=== PATIENT | female | born 1950 | race Caucasian/White ===

== ENCOUNTER → 2017-05-11 | Outpatient (CLI) | payer OTHER ==
[~2017-05-11] MED LIST: ALPR-411 PO; ASPEC325 PO; ATEN-173 PO; B-CO1CAP17 PO; CHOL20007 PO; DICY20TA35 PO; DRY EYES OPB; MAGNESIUM PO; POLY335019 PO; PRLSR20 PO; ROSU40TA PO; RXC5 PO; SERT-234 PO; TURM1CAP PO
--- NOTE | 2017-05-11 13:02 | DIAGNOSTIC IMAGING REPORT ---
MRI OF THE LEFT SHOULDER CLINICAL HISTORY: Left shoulder pain. COMPARISON STUDY: No priors. TECHNIQUE: MRI of the left shoulder was performed utilizing various T1 and T2 weighted sequences in the axial, sagittal, coronal planes. IV contrast was not administered for this examination. Note that interpretation is suboptimal without plain film correlate. FINDINGS: Rotator cuff: There is evidence of previous rotator cuff repair. There is moderate tendinopathy of the supraspinatus tendon. Mild tendinopathy seen involving the intraspinous tendon. There is a small partial thickness undersurface tear of the supraspinatus tendon near the leading edge, best seen on coronal image #13. The teres minor and subscapularis tendons are intact. There is no subacromial or subdeltoid bursal fluid. There is mild productive degenerative change at the acromioclavicular joint. Biceps tendon: The long head of the biceps tendon is normal in signal intensity and located within the bicipital groove. The anchor is maintained. Labrum: There is maceration with circumferential tearing of the glenoid labrum. This is greatest posteriorly. Shoulder joint: There is no joint effusion. There is degenerative thinning of the articular cartilage over the glenoid. Marrow edema and degenerative cystic changes seen in the posterior aspect of the glenoid. There is mild overlying soft tissue edema. Musculature and soft tissues: The musculature of the shoulder is normal in bulk and signal intensity. No atrophy is seen. IMPRESSION: 1. There are postoperative changes consistent with previous rotator cuff repair. No full-thickness rotator cuff tear is seen. 2. There is moderate tendinopathy of the supraspinatous tendon. A small partial thickness undersurface tear is seen near the leading edge. 3. There is circumferential tearing and maceration of the glenoid labrum, greatest posteriorly. There is underlying arthritic change and marrow edema within the posterior glenoid. 4. The long head of the biceps tendon is intact. Electronically signed by: Tyree Aldana M.D. 05/11/2017 1:01 PM Dictated Date/Time: 05/11/2017 12:39 PM
== END | disposition home or self-care (01) ==
LOC: C.MRIBC 11:23
PROVIDERS: ATTEND Orthopaedic Surgery
DX: M25.512 Pain in left shoulder (principal); M75.92 Shoulder lesion, unspecified, left shoulder; S43.432A Superior glenoid labrum lesion of left shoulder, initial encounter; X58.XXXA Exposure to other specified factors, initial encounter

== ENCOUNTER 2017-07-29 07:59 | Inpatient (IN) | payer OTHER ==
[2017-07-06 10:19] VITALS: BMI 42.0
--- NOTE | 2017-07-06 10:53 | PAT Medication Instructions ---
Service Date Jul 06, 2017. Current Home Medication List Alprazolam (Xanax), 0.5 MG PO TID PRN for RN Atenolol (Tenormin), 25 MG PO HS Cholecalciferol (Vitamin D3), 1 TAB PO QPM Dicyclomine Hcl (Bentyl), 20 MG PO QID PRN for RN Omeprazole (Prilosec), 40 MG PO QAM Polyethylene Glycol 3350 (Miralax), 17 GM PO QAM Rosuvastatin Calcium (Crestor), 40 MG PO HS Sertraline (Zoloft), 100 MG PO QAM Turmeric (Curcuma Longa) (Turmeric Curcumin), 1,000 MG PO QAM Vitamin B Cmplx/Vitc/Folic Ac (Nephrocaps), 1 CAP PO QAM [Dry Eyes], 1 DROP OPB PRN [Magnesium], 500 MG PO QPM Medication Instructions For Your Scheduled Surgery - Hold the following medications 2 weeks prior to surgery: Turmeric (Curcuma Longa) (Turmeric Curcumin), 1,000 MG PO QAM - Hold the following medications the morning of surgery: Cholecalciferol (Vitamin D3), 1 TAB PO QPM Dicyclomine Hcl (Bentyl), 20 MG PO QID PRN for RN Polyethylene Glycol 3350 (Miralax), 17 GM PO QAM Vitamin B Cmplx/Vitc/Folic Ac (Nephrocaps), 1 CAP PO QAM - Take the following medications the morning of surgery with a sip of water: [Dry Eyes], 1 DROP OPB PRNx Sertraline (Zoloft), 100 MG PO QAM Omeprazole (Prilosec), 40 MG PO QAM Alprazolam (Xanax), 0.5 MG PO TID PRN for RN (if needed) - Take the following medications as scheduled the night before surgery: [Magnesium], 500 MG PO QPM [Dry Eyes], 1 DROP OPB PRNx Rosuvastatin Calcium (Crestor), 40 MG PO HS Dicyclomine Hcl (Bentyl), 20 MG PO QID PRN for RN (if needed) Atenolol (Tenormin), 25 MG PO HS Alprazolam (Xanax), 0.5 MG PO TID PRN for RN (if needed) If you have any questions please call us at [phone] or [phone] or [phone]
--- NOTE | 2017-07-06 11:46 | DIAGNOSTIC IMAGING REPORT ---
CHEST PREADMISSION(PA/LAT) CLINICAL HISTORY: PAT preoperative evaluation COMPARISON STUDY: No previous studies for comparison. FINDINGS: The bones soft tissues and hemidiaphragms are normal. The cardiomediastinal silhouette is normal. The lungs are clear. The pulmonary vasculature is normal. IMPRESSION: Negative chest. The above report was generated using voice recognition software. It may contain grammatical, syntax or spelling errors. Electronically signed by: Collin Eli M.D. 07/06/2017 11:44 AM Dictated Date/Time: 07/06/2017 11:44 AM
[2017-07-06 11:57] LABS: URINE APPEARANCE CLEAR (CLEAR); URINE BILIRUBIN NEG (NEG); URINE COLOR YELLOW; URINE NITRITE NEG (NEG); URINE PH 7.5 (4.5-7.5); URINE SPECIFIC GRAVITY 1.009 (1.000-1.030); UROBILINOGEN NEG (NEG)
[2017-07-06 11:59] LABS: INR 0.9 (0.9-1.1); PARTIAL THROMBOPLASTIN RATIO 1.1; PROTHROMBIN TIME (PATIENT) 9.9 SECONDS (9.0-12.0)
[2017-07-06 12:07] LABS: MANUAL MICROSCOPIC REQUIRED? NO; REVIEW REQ? NO
[2017-07-06 12:15] LABS: HEMATOCRIT 37.3 % (37-47); MEAN CELL VOLUME 85.6 fL (80-100); MEAN CORPUSCULAR HEMOGLOBIN 28.4 pg (25-34); MEAN CORPUSCULAR HGB CONC 33.2 g/dl (32-36); MEAN PLATELET VOLUME 10.5 fL (7.4-10.4); PLATELET COUNT 232 K/uL (130-400); RED BLOOD COUNT 4.36 M/uL (4.2-5.4); WHITE BLOOD COUNT 6.22 K/uL (4.8-10.8)
[2017-07-06 12:20] LABS: BASO % 0.5 %; BASO ABS # 0.03 K/uL (0-0.2); COMPLETE YES; EOS % 3.4 %; IG% 0.3 %; LYMPH ABS # 1.74 K/uL (1.2-3.4); MONO % 7.6 %; NEUT % 60.2 %
[2017-07-06 12:49] LABS: BUN/CREATININE RATIO 17.4 (10-20); CALCIUM 10.4 mg/dl (8.5-10.1); CREATININE 0.96 mg/dl (0.60-1.20); POTASSIUM 5.2 mmol/L (3.5-5.1)
--- NOTE | 2017-07-28 11:15 | HISTORY & PHYSICAL EXAMINATION ---
DATE OF ADMISSION: 07/29/2017 CHIEF COMPLAINT: Left knee pain. HISTORY OF PRESENT ILLNESS: Ludy is a 67-year-old female who has been complaining of several year history of increasing bilateral knee pain, left worse than right. X-rays and clinical examination are diagnostic for primary osteoarthritis of the left shoulder. After failing extensive conservative treatment, she elects to proceed with left total knee arthroplasty. PAST MEDICAL HISTORY: Hyperlipidemia, hypertension, GERD, diverticulosis. PAST SURGICAL HISTORY: Significant for open left rotator cuff repair at [facility] about 10 years ago, hysterectomy, heart catheterization and cholecystectomy. ALLERGIES: None. MEDICATIONS: Vitamin D3 2000 units daily, atenolol 25 mg daily, Zoloft 100 mg daily, Prilosec 40 mg daily, Crestor 40 mg daily, Bentyl 20 mg 4 times a day as needed, Xanax 0.5 mg 3 times per day as needed, diclofenac 1 tab twice a day, MiraLax as needed. FAMILY HISTORY: Noncontributory. SOCIAL HISTORY: She is , rarely drinks, and is moderately active. REVIEW OF SYSTEMS: She complains of left knee pain. All other pertinent review of systems are negative. PHYSICAL EXAMINATION: GENERAL: She is awake, alert and oriented x3. She is in no apparent distress. She is very pleasant. HEENT: Pupils are equal, round and reactive to light. Extraocular motion intact. Oral mucosa is pink and moist. HEART: Regular rate per radial pulse. LUNGS: Yulissa symmetrically bilaterally with no audible breath sounds. ABDOMEN: Soft, nontender, nondistended. MUSCULOSKELETAL: On physical examination of her left knee, there is slight varus deformity. She has severe tenderness to palpation along the medial joint line and over the distal medial femoral condyle. She has good range of motion from 0-125 degrees and no instability. IMAGING DATA: X-rays show advanced osteoarthritis of the left knee, mostly involving the medial compartment. There is joint space narrowing, osteophyte formation, and subchondral cyst. IMPRESSION: Primary osteoarthritis of the left knee. PLAN: Will proceed with a Biomet Vanguard left total knee arthroplasty. Postoperatively, she will be placed in a compressive dressing and started on aspirin 325 mg twice a day. She will be kept in the hospital for postoperative medical management.
[~2017-07-29] VITALS: Ht 160 cm; Wt 109.5 kg
[2017-07-29] VITALS (10 sets, daily range): BP systolic 127–177; BP diastolic 64–84; PULSE 46–68; TEMP 36.4–36.9; O2SAT 92–100; Ht 160 cm; Wt 109.5 kg
[2017-07-29] MEDS: TRANEXAMIC ACID INJ 1,000 MG in SODIUM CHLORIDE 0.9% 100ML 100 ML IV SCH ×2 (06:30→08:55)
[2017-07-29] MEDS: SODIUM CHLORIDE 0.9% 500ML 500 ML IV SCH ×4 (06:31→08:40)
--- NOTE | 2017-07-29 06:52 | History & Physical Bridge Note ---
H&P Re-Evaluation Bridge Note: I have examined the patient, reviewed the History & Physical and in the interval since the performance of the History & Physical I have noted the following changes of clinical significance: No changes noted
[~2017-07-29 07:59] MED LIST changes: +ACETAMINOPHEN 500 MG TAB PO SCH; -ASPEC325 PO; +BUPIVACAINE 0.25% 30 ML VIAL ONE; +BUPIVACAINE 0.5 % 5 MG/1 ML PF 10ML VIAL ONE; +CEFAZOLIN 2000 MG/60 ML D5W 60 ML IV SCH; +FAMOTIDINE 20 MG TAB PO SCH; +FENTANYL CITRATE INJ 50 MCG/1 ML 2 ML VIAL ONE; +GABAPENTIN 300 MG CAP PO SCH; +MIDAZOLAM HCL 1 MG/ML 2ML VIAL ONE; +ROPIVACAINE 5MG/ML 30 ML 150 MG, BUPIVACAINE/EPINEPHR 0.5% MPF 30 ML, KETOROLAC TROMETH... INFIL SCH; -RXC5 PO; +SODIUM CHLORIDE 0.9% 1000ML 1,000 ML IV SCH; +TRANEXAMIC ACID INJ 1,000 MG in SODIUM CHLORIDE 0.9% 100ML 100 ML IV SCH
[2017-07-29] MEDS ORDERED: ATROPINE SULFATE 0.1 MG/ML 5ML SYR IV PRN (08:45)
[2017-07-29] MEDS ORDERED: FENTANYL CITRATE INJ 50 MCG/1 ML 2 ML VIAL IV PRN (08:45)
[2017-07-29] MEDS ORDERED: EpHEDrine SULFATE INJ 50 MG/ML AMP IV PRN (08:45)
[2017-07-29] MEDS ORDERED: HYDROmorphone INJ 1 MG/ML SYR IV PRN (08:45)
[2017-07-29] MEDS ORDERED: ONDANSETRON INJ 2 MG/ML 2 ML VIAL IV PRN ×2 (08:45→12:30)
[2017-07-29] MEDS ORDERED: PROMETHAZINE HCL INJ 12.5 MG in SODIUM CHLORIDE 0.9% 50ML 50 ML IV PRN (08:45)
[2017-07-29] MEDS: LACTATED RINGER'S 1000ML IV SCH (08:50)
[2017-07-29 09:00] LABS: BUN/CREATININE RATIO 18.8 (10-20); CALCIUM 9.6 mg/dl (8.5-10.1); CREATININE 0.83 mg/dl (0.60-1.20); POTASSIUM 4.1 mmol/L (3.5-5.1)
[2017-07-29] MEDS ORDERED: ORTHO JOINT ANESTHETIC ONE (09:32)
[2017-07-29] MEDS ORDERED: BACITRACIN 50000 UNIT VIAL ONE (09:32)
[2017-07-29] MEDS ORDERED: LIDOCAINE HCL 2% 2 ML VIAL (20MG/ML) ONE (11:29)
[2017-07-29] MEDS ORDERED: PROPOFOL IV EMULSION 10 MG/ML 20 ML VIAL IV ONE (11:29)
[2017-07-29] MEDS ORDERED: SOD PHOSPHATE/SOD BIPHOSPHATE ENEMA 132 ML BTL PR PRN (12:30)
[2017-07-29] MEDS ORDERED: ALPRAZOLAM 0.5 MG TAB PO PRN (12:30)
[2017-07-29] MEDS ORDERED: BISACODYL 10 MG SUPP PR PRN (12:30)
[2017-07-29] MEDS ORDERED: DICYCLOMINE HCL 20 MG TAB PO PRN (12:30)
[2017-07-29] MEDS ORDERED: METOCLOPRAMIDE HCL INJ 5 MG/ML 2 ML VIAL IV PRN (12:30)
[2017-07-29] MEDS ORDERED: MAGNESIUM HYDROXIDE SUSP 30 ML UDC PO PRN (12:30)
[2017-07-29] MEDS ORDERED: MoRPHine SULFATE 2 MG/ML CARP IV PRN (12:30)
--- NOTE | 2017-07-29 12:36 | [facility] Post Operative Brief Note ---
Immediate Operative Summary Operative Date Jul 29, 2017. Pre-Operative Diagnosis Left Knee Osteoarthritis Post-Operative Diagnosis Same as preoperative Procedure(s) Performed Left Total Knee Arthroplasty Surgeon Dr. Nolan Lane Care Connector Surgeon(s) Adama Feliz PA-C Estimated Blood Loss 50ml Findings as above Specimens A.) Left Knee Bone and Tissue Complication(s) None Disposition Recovery Room / PACU
[2017-07-29] MEDS ORDERED: ARTIFICIAL TEARS OP SOLN OP PRN ×2 (13:15)
--- NOTE | 2017-07-29 13:16 | Anesthesiology Progress Note ---
Anesthesia Post Op Note Date & Time Jul 29, 2017 at 13:15 Vital Signs Pain Intensity: 0 Vital Signs Past 12 Hours Date Time Temp Pulse Resp B/P (MAP) Pulse Ox O2 Delivery O2 Flow Rate FiO2 07/29/17 12:55 57 16 118/49 99 Nasal Cannula 2 07/29/17 12:49 36.8 59 16 128/53 99 Nasal Cannula 2 07/29/17 08:29 36.5 60 18 177/71 98 Room Air Notes Mental Status: alert / awake / arousable, participated in evaluation Pt Amnestic to Procedure: Yes Nausea / Vomiting: adequately controlled Pain: adequately controlled Airway Patency, RR, SpO2: stable & adequate BP & HR: stable & adequate Hydration State: stable & adequate Neuraxial Anesthesia: was administered, sensory block is resolving Anesthetic Complications: no major complications apparent Doing well, VSS. No complaints. Pain controlled
--- NOTE | 2017-07-29 13:23 | DIAGNOSTIC IMAGING REPORT ---
LEFT KNEE 2 VIEWS History: Left total knee arthroplasty. Degenerative arthritis. Postop. FINDINGS: The patient is status post a left total knee arthroplasty. The hardware is intact. No fracture or dislocation. Skin caroline and surgical drains are in place. IMPRESSION: Left total knee arthroplasty. No evidence for hardware complication. Electronically signed by: John Quinn M.D. 07/29/2017 1:22 PM Dictated Date/Time: 07/29/2017 1:21 PM
[2017-07-29] MEDS: SODIUM CHLORIDE 0.9% 1000ML 1,000 ML IV SCH ×2 (14:33→23:33)
[2017-07-29] MEDS: ACETAMINOPHEN IV 1,000 MG in EMPTY BAG 0 ML IV SCH ×2 (15:31→23:32)
[2017-07-29] MEDS: OXYCODONE HCL IR 5 MG TAB (IMMEDIATE RELEASE) PO PRN ×3 (16:32→22:09)
[2017-07-29] MEDS: KETOROLAC TROMETHAMINE 15 MG/ML VIAL IV. SCH ×2 (18:04→23:32)
--- NOTE | 2017-07-29 18:11 | OPERATIVE REPORT ---
DATE OF OPERATION: 07/29/2017 PREOPERATIVE DIAGNOSIS: Primary osteoarthritis of the left knee. POSTOPERATIVE DIAGNOSIS: Same. PROCEDURE: Left total knee arthroplasty. SURGEON: Dr. Nolan Lane. LEAN SIX SIGMA BLACK BELT: Adama Feliz PA-C, whose assistance was necessary for positioning the leg and helping with retraction and closure. ANESTHESIA: Spinal with a left adductor nerve block. COMPLICATIONS: None. CONDITION: Stable to PACU. IMPLANTS USED: I used a Biomet Vanguard left total knee arthroplasty with a size 65 left femur, 71 tibia, size 10 posterior stabilized poly and a 31 x 8 three-peg patella. All complements were cemented with Palacos-G cement. INDICATIONS: Jamaica is a pleasant 67-year-old female who presented to my office with complaints of chronic left knee pain. X-rays and clinical examination were diagnostic for primary osteoarthritis of the left knee. After failing extensive conservative treatment, she elected to undergo a left total knee arthroplasty. DESCRIPTION OF PROCEDURE: On 07/29/2017, she arrived at [facility] for the above procedure. She was seen in the preoperative holding area and the operative extremity was identified and signed. She was given a preoperative antibiotic, a spinal anesthetic and a left adductor nerve block. She was taken back to the operating room, laid on the table in supine position and given basic sedation. The left knee was then prepped and draped in sterile fashion. Time-out was done and the patient and operative extremity was properly identified. A midline incision was made directly over the patella. Dissection was taken down to the extensor mechanism and a medial parapatellar arthrotomy was used. The medial retinaculum was released. The fat pad was left intact. The knee was then flexed. ACL, PCL and meniscus were then removed. A drill was sent down the center of the femoral canal followed by an intramedullary cristobal. Off that cristobal, a distal femoral cutting block was placed and 12 mm was resected off the distal femur at 5 degrees of valgus. A posterior referencing guide was used and the femur measured to be a size 65. Two drill holes were then placed in 3 degrees of external rotation. A 4-in-1 cutting block was impacted into place. Anterior, posterior and chamfer cuts were then made. The box cutting guide was then placed and the box was resected for posterior stabilizing component. The proximal tibia was then exposed and a drill was sent down the center of the tibial canal followed by an intramedullary cristobal. Off that cristobal, a proximal tibial resection guide was placed and 2 mm was resected off the low medial side. The tibia measured to be a size 71. It was set in the appropriate rotation, drilled and then punched. The posterior aspect of the knee was then opened up and any soft tissue remnants were removed. Trials were placed. The knee was brought through a full range of motion and felt to be stable. The patella was then everted and 8 mm was resected off the posterior aspect of the patella. A size 31 three-peg guide was placed and the peg holes were drilled. A trial patella was then placed. The knee was brought through a full range of motion and felt to be stable. Trial components were then removed and the final components were then cemented in place with Palacos-G cement. The surrounding soft tissues were then injected with 100 mL of an orthopedic pain control cocktail. Several different polyethylene trials were used and a size 10 posterior stabilized poly seemed to be the best fit. The final implant was then snapped into place and the anterior bar was locked. The joint was then irrigated with 3 liters of normal saline solution with bacitracin. Two drains were placed. The extensor mechanism was then closed with #2 FiberWire suture in the superior medial aspect and #1 Vicryl both proximally and distally. Skin was closed with 2-0 Vicryl, 3-0 V-Loc sutures and caroline. She was then placed in a soft compressive dressing, transferred to a [facility] and taken to the postanesthesia care unit in stable condition. She tolerated the procedure well. I attest to the content of the Intraoperative Record and any orders documented therein. Any exception s are noted below.
[2017-07-29] MEDS: CEFAZOLIN IV 2,000 MG in DEXTROSE 5% 50ML 50 ML IV SCH (19:09)
[2017-07-29] MEDS: ASPIRIN 325 MG ECTAB PO SCH (20:35)
[2017-07-29] MEDS: DOCUSATE SODIUM 100 MG CAP PO SCH (20:35)
[2017-07-29] MEDS: ROSUVASTATIN CALCIUM 20 MG TAB PO SCH (20:35)
[2017-07-29] MEDS: MAGNESIUM OXIDE 400 MG TAB PO SCH (20:36)
[2017-07-29] MEDS: SENNA 8.6 MG TAB PO SCH (20:36)
[2017-07-29] MEDS: CHOLECALCIFEROL 1000 INTER.UNIT TAB PO SCH (20:36)
[2017-07-30] VITALS (8 sets, daily range): BP systolic 112–150; BP diastolic 61–76; PULSE 52–76; TEMP 36.7–36.9; O2SAT 95–98
[2017-07-30] MEDS: CEFAZOLIN IV 2,000 MG in DEXTROSE 5% 50ML 50 ML IV SCH (02:07)
[2017-07-30] MEDS: KETOROLAC TROMETHAMINE 15 MG/ML VIAL IV. SCH ×4 (06:03→23:24)
[2017-07-30 06:17] LABS: BUN/CREATININE RATIO 18.3 (10-20); CREATININE 0.83 mg/dl (0.60-1.20); POTASSIUM 4.1 mmol/L (3.5-5.1)
[2017-07-30 06:42] LABS: HEMATOCRIT 29.2 % (37-47); MEAN CELL VOLUME 84.4 fL (80-100); MEAN CORPUSCULAR HEMOGLOBIN 28.3 pg (25-34); MEAN PLATELET VOLUME 10.2 fL (7.4-10.4); PLATELET COUNT 161 K/uL (130-400); RED BLOOD COUNT 3.46 M/uL (4.2-5.4); WHITE BLOOD COUNT 9.91 K/uL (4.8-10.8)
[2017-07-30 06:56] LABS: MEAN CORPUSCULAR HGB CONC 33.6 g/dl (32-36)
[2017-07-30] MEDS: OXYCODONE HCL IR 5 MG TAB (IMMEDIATE RELEASE) PO PRN ×3 (07:35→21:52)
[2017-07-30] MEDS: ACETAMINOPHEN IV 1,000 MG in EMPTY BAG 0 ML IV SCH ×3 (07:35→23:23)
[2017-07-30] MEDS: NEPHROCAPS PO SCH (08:26)
[2017-07-30] MEDS: MULTIVITAMIN TAB PO SCH (08:27)
[2017-07-30] MEDS: PANTOprazole SOD 40 MG TAB PO SCH (08:27)
[2017-07-30] MEDS: SERTRALINE HCL 100 MG TAB PO SCH (08:27)
[2017-07-30] MEDS: ASPIRIN 325 MG ECTAB PO SCH ×2 (08:27→21:50)
[2017-07-30] MEDS: POLYETHYLENE (MIRALAX) 17 GM PACK PO SCH (08:28)
[2017-07-30] MEDS: DOCUSATE SODIUM 100 MG CAP PO SCH ×2 (08:28→21:49)
[2017-07-30] MEDS: SODIUM CHLORIDE 0.9% 1000ML 1,000 ML IV SCH (08:29)
--- NOTE | 2017-07-30 08:50 | PROGRESS NOTE ---
DATE: 07/30/2017 CHIEF COMPLAINT: Status post left total knee arthroplasty post op day #1. PROGRESS: Jamaica was seen and examined at bedside today. Overall, she is doing very well. She is sitting up in the chair, eating breakfast. Her knee is flexed. She has very little pain and no complaints. PHYSICAL EXAMINATION: LEFT KNEE: The dressing is clean and dry and the drain is to suction. She has active dorsiflexion and plantarflexion of her left ankle and sensation is intact. DATA: She has an H&H today of 9.8 and 29.2. Her glucose is 123. Her vital signs are all stable on room air and she is voiding on her own. X-rays postoperatively of the left knee showed the prosthesis to be in anatomical alignment without any evidence of fracture, dislocation or loosening. IMPRESSION: Status post left total knee arthroplasty postop day #1. PLAN: At this point, she is doing very well and happy with her progress. She will be seen by physical therapy today for ambulation. We will work on pain control. Tomorrow morning, the nursing staff can change the dressing and pull the drain and will likely discharge her to home with either a home health service or outpatient physical therapy. She will be seen by case management today to help decide that.
[2017-07-30] MEDS ORDERED: TURMERIC 1000 MG PO SCH (09:00)
[2017-07-30] MEDS: SENNA 8.6 MG TAB PO SCH (21:50)
[2017-07-30] MEDS: MAGNESIUM OXIDE 400 MG TAB PO SCH (21:50)
[2017-07-30] MEDS: ROSUVASTATIN CALCIUM 20 MG TAB PO SCH (21:50)
[2017-07-30] MEDS: CHOLECALCIFEROL 1000 INTER.UNIT TAB PO SCH (21:50)
[2017-07-31] MEDS: OXYCODONE HCL IR 5 MG TAB (IMMEDIATE RELEASE) PO PRN ×2 (04:10→07:52)
[2017-07-31] MEDS: KETOROLAC TROMETHAMINE 15 MG/ML VIAL IV. SCH (05:23)
[2017-07-31 06:15] VITALS: BP 135/71; PULSE 74; TEMP 36.8; O2SAT 95
[2017-07-31] MEDS: ACETAMINOPHEN IV 1,000 MG in EMPTY BAG 0 ML IV SCH (08:09)
[2017-07-31] MEDS: PANTOprazole SOD 40 MG TAB PO SCH (08:10)
[2017-07-31] MEDS: MULTIVITAMIN TAB PO SCH (08:10)
[2017-07-31] MEDS: ASPIRIN 325 MG ECTAB PO SCH (08:10)
[2017-07-31] MEDS: NEPHROCAPS PO SCH (08:10)
[2017-07-31] MEDS: SERTRALINE HCL 100 MG TAB PO SCH (08:11)
[2017-07-31] MEDS: POLYETHYLENE (MIRALAX) 17 GM PACK PO SCH (08:23)
[2017-07-31] MEDS: DOCUSATE SODIUM 100 MG CAP PO SCH (08:24)
[2017-07-31 08:55] VITALS: BP 135/71; PULSE 74; O2SAT 95
[2017-07-31] MEDS ORDERED: ASPEC325 PO (09:08)
[2017-07-31] MEDS ORDERED: RXC5 PO (09:08)
--- NOTE | 2017-07-31 09:09 | Discharge Instructions ---
Discharge Instructions Date of Service Jul 31, 2017. Admission Reason for Admission: Left Knee Osteoarthritis Discharge Discharge Diagnosis / Problem: Left Total Knee Discharge Goals Goal(s): Decrease discomfort, Improve function Activity Recommendations Activity Limitations: as noted below . Instructions / Follow-Up Instructions / Follow-Up Activity and Therapy Recommendations: * If you are using [facility] then Physical Therapy will be provided until they feel you are ready to start Outpatient Physical Therapy. If you are not using a Home Health agency then Outpatient Physical Therapy should start about 3-5 days from your day of surgery. Therapy will last about 6-10 weeks * It is important not to put a pillow under your knee when you are relaxing or sleeping. It is just as important to make sure you are getting your knee perfectly straight as it is to regain your knee bend. * You were shown a series of exercises in the hospital. Do these exercises three times each day including the exercises you were shown in physical therapy. * Get up and walk several times each day. For the first four weeks, try not to stand or walk for more than one hour at a time. If you do stand or walk for more than one hour, you will not hurt anything, but your leg will likely swell. * As you feel comfortable, you may change from the walker or crutches to a cane and then to independent walking. Medications: * Narcotic You will likely be sent home from the hospital with a prescription for the narcotic pain medication that worked best throughout your stay. * Aspirin Most patients will be required to take Aspirin 325mg twice a day for 6 weeks after surgery. This is obtained [id number] and a prescription is not necessary. * Other medications may be prescribed for specific circumstances. If you have any questions, please call the office at . * Resume previous home medications unless otherwise instructed TEDs/Elastic Stockings: The white elastic stockings help limit swelling and prevent blood clots from forming in your legs.~ The more you wear them, the more they work. Wear them for six weeks. Showering: You may shower 5 days from the day of surgery. Let the soapy shower water run over the caroline. Do not scrub or soak the incision. Things To Watch For: * Drainage from the incision site that occurs more than one week after your surgery. * Increased redness at the incision site. * Fever above 102 degrees Fahrenheit. * Unusual chest pain or shortness of breath. * Call [facility] at with any of the above problems Follow-Up Visit: Follow-up with Dr. Lane 2-3 weeks after your day of surgery. An appointment was probably scheduled when you signed-up for surgery in the office. If you have any questions call Office Instructions: More detailed instructions as well as Frequently Asked Questions were provided in a folder by our office when you signed-up for surgery. Please review these instructions when you get home. If you have any further questions or concerns, please feel free to call the office at [phone] Current Hospital Diet Patient's current hospital diet: Regular Diet Discharge Diet Recommended Diet: Regular Diet Procedures Procedures Performed: Left Total Knee Arthroplasty Pending Studies Studies pending at discharge: no Medical Emergencies . Who to Call and When: Medical Emergencies: If at any time you feel your situation is an emergency, please call [phone] immediately. . Non-Emergent Contact Non-Emergency issues call your: Surgeon Call Non-Emergent contact if: wound has increased drainage, wound has increased redness . "Provider Documentation" section prepared by Nolan Lane. . VTE Core Measure Inpt VTE Proph given/why not?: Other Anticoagulation (Aspirin 325 twice a week for 6 weeks)
--- NOTE | 2017-07-31 11:00 | PROGRESS NOTE ---
DATE: 07/31/2017 CHIEF COMPLAINT: Status post left total knee arthroplasty, postop day #1. PROGRESS: Ludy was seen and examined at bedside today. Overall, she is doing very well. She just got back from physical therapy where she was easily ambulating. Her pain is well controlled. She has no complaints. PHYSICAL EXAMINATION: LEFT KNEE: The dressing is clean and dry and the drain had been pulled earlier this morning. She has excellent range of motion of her leg. She is neurovascularly intact. IMPRESSION: Status post left total knee arthroplasty postop day #2. PLAN: At this point, she is doing very well. She is not having much pain in the knee. She is happy with her progress. We are going to discharge her to home with home health services and oral pain medications.
--- NOTE | 2017-08-01 01:13 | DISCHARGE SUMMARY ---
DISCHARGE DIAGNOSIS: Primary osteoarthritis of the left knee. PROCEDURE: Left total knee arthroplasty on 07/29/[address]. DISCHARGE INSTRUCTIONS: 1. Aspirin 325 mg twice a day. 2. KAREN hose stockings for 6 weeks. 3. Oxycodone 5-10 mg every 4 hours as needed for pain. 4. Xanax 0.5 mg 3 times a day as needed. 5. Atenolol 25 mg at night. 6. Bentyl 20 mg 4 times a day as needed. 7. Prilosec 40 mg daily. 8. Crestor 40 mg at night. 9. Zoloft 100 mg daily. 10. Continue all other over the counter medications and supplements. HOSPITAL COURSE: Jamaica is a 67-year-old female who presented to my office with complaints of severe left knee pain. X-rays and clinical examination were diagnostic for primary osteoarthritis of the left knee. After failing conservative treatment, she elected to undergo a left total knee arthroplasty. On 07/29/2017, she arrived at [facility] for the above procedure. She was seen in the preoperative holding area and the operative extremity was identified and signed. She was given a preoperative antibiotic and a spinal anesthetic and a left adductor nerve block. She then underwent a left total knee arthroplasty without complications. Postoperatively, she was started on aspirin 325 mg twice a day for DVT prophylaxis and discharged to general orthopedic floors. Her hospital course was uneventful. On postop day #1, her H&H was stable at 9.8 and 29.2. She was able to ambulate well with physical therapy and her pain was well controlled. On postop day #2, she continued to do very well. The dressing were changed, the drain was pulled and she was subsequently discharged to home with the above instructions.
== END 2017-07-31 09:36 | disposition home health service (06) | DRG 470 ==
LOC: C.ACU 07:59 → C.3E 10:00 → ENRESERV 13:03
PROVIDERS: ADMIT Orthopaedic Surgery; ATTEND Orthopaedic Surgery
PROC: 0SRD0J9 Replacement of Left Knee Joint with Synthetic Substitute, Cemented, Open Approach (ICD-10-PCS; principal; 2017-07-29 11:40)
DX: M17.12 Unilateral primary osteoarthritis, left knee (principal); M19.012 Primary osteoarthritis, left shoulder; E78.5 Hyperlipidemia, unspecified; I10 Essential (primary) hypertension; K21.9 Gastro-esophageal reflux disease without esophagitis

== ENCOUNTER 2017-11-11 06:16 | Inpatient (IN) | payer OTHER ==
[2017-10-12 16:38] LABS: BASO % 0.2 %; BASO ABS # 0.01 K/uL (0-0.2); EOS % 1.9 %; EOS ABS # 0.11 K/uL (0-0.5); HEMATOCRIT 36.1 % (37-47); HEMOGLOBIN 11.7 g/dL (12.0-16.0); IG# 0.01 K/uL (0.00-0.02); LYMPH % 27.4 %; LYMPH ABS # 1.62 K/uL (1.2-3.4); MEAN CELL VOLUME 83.2 fL (80-100); MEAN CORPUSCULAR HGB CONC 32.4 g/dl (32-36); MEAN PLATELET VOLUME 10.5 fL (7.4-10.4); MONO % 5.9 %; MONO ABS # 0.35 K/uL (0.11-0.59); NEUT % 64.4 %; NEUT ABS # 3.81 K/uL (1.4-6.5); PLATELET COUNT 245 K/uL (130-400); RED CELL DISTRIBUTION WIDTH CV 15.1 % (11.5-14.5); RED CELL DISTRIBUTION WIDTH SD 46.1 fL (36.4-46.3); WHITE BLOOD COUNT 5.91 K/uL (4.8-10.8)
[2017-10-12 16:47] LABS: PTT PATIENT 23.9 SECONDS (21.0-31.0)
[2017-10-12 17:03] LABS: BLOOD UREA NITROGEN 14 mg/dl (7-18); CALCIUM 9.4 mg/dl (8.5-10.1); CARBON DIOXIDE 27 mmol/L (21-32); CREATININE 0.74 mg/dl (0.60-1.20); GLUCOSE 95 mg/dl (70-99); POTASSIUM 4.2 mmol/L (3.5-5.1); SODIUM 137 mmol/L (136-145)
[2017-10-21 10:33] VITALS: BMI 41.0
--- NOTE | 2017-11-10 07:09 | HISTORY & PHYSICAL EXAMINATION ---
DATE OF ADMISSION: 11/11/2017 PREOPERATIVE DIAGNOSIS: Primary osteoarthritis of the right knee. HISTORY OF PRESENT ILLNESS: Jamaica is a very pleasant 67-year-old female who has been having several year history of chronic increasing right knee pain. X-rays and clinical examination have been diagnostic for primary osteoarthritis of the right knee. She had a left total knee arthroplasty done about 3 months ago and is doing very well with that. She elected to proceed with a right knee replacement. She understands the risks, benefits, alternatives to procedure and would like to proceed. PAST MEDICAL HISTORY: Significant for hyperlipidemia, hypertension, GERD, and diverticulosis. PAST SURGICAL HISTORY: Significant for open rotator cuff repair at [facility] 10 years ago, hysterectomy, heart catheterization, cholecystectomy and a left total knee arthroplasty 3 months ago. ALLERGIES: None. MEDICATIONS: Include vitamin D3, atenolol, Zoloft, Prilosec, Crestor, Bentyl, Xanax, diclofenac and MiraLax. FAMILY HISTORY: Denies. SOCIAL HISTORY: She is , rarely drinks. She is moderately active. REVIEW OF SYSTEMS: She complains of right knee pain. All other pertinent review of systems are negative. PHYSICAL EXAMINATION: GENERAL: She is awake, alert and oriented x3. She is in no apparent distress. She is very pleasant. HEENT: Pupils are equal, round and reactive to light. Extraocular motion intact. Oral mucosa is pink and moist. HEART: Regular rate per radial pulse. LUNGS: Yulissa symmetrically bilaterally with no audible breath sounds. ABDOMEN: Soft, nontender, nondistended. MUSCULOSKELETAL: On physical examination of the right knee, she has no effusion on exam. She has good motion from 0-130 degrees. She has a slight varus deformity. She has significant tenderness to palpation over the distal medial femoral condyle and over the medial joint line. IMAGING DATA: X-rays of the right knee do show advanced osteoarthritis mostly involving the medial compartment. There is joint space narrowing and osteophyte formation. IMPRESSION: Primary osteoarthritis of the right knee. PLAN: We will proceed with a right total knee arthroplasty. Postoperatively, she will be started on aspirin for DVT prophylaxis and likely kept in the hospital for 2 midnights for postoperative medical management.
[~2017-11-11] VITALS: Ht 160 cm; Wt 106.4 kg
[2017-11-11] VITALS (9 sets, daily range): BP systolic 103–149; BP diastolic 63–83; PULSE 55–68; TEMP 36.3–36.9; O2SAT 91–98; Ht 160 cm; Wt 106.4 kg
[~2017-11-11 06:16] MED LIST changes: -BUPIVACAINE 0.25% 30 ML VIAL ONE; -BUPIVACAINE 0.5 % 5 MG/1 ML PF 10ML VIAL ONE; -CEFAZOLIN 2000 MG/60 ML D5W 60 ML IV SCH; +CEFAZOLIN 2000MG IV PUSH 10 ML IV SCH; -FENTANYL CITRATE INJ 50 MCG/1 ML 2 ML VIAL ONE; +LACTATED RINGER'S 1000ML 1,000 ML IV SCH; +LACTATED RINGER'S 1000ML 500 ML IV SCH; +LACTATED RINGER'S 1000ML IV SCH; -MIDAZOLAM HCL 1 MG/ML 2ML VIAL ONE; +PATIENT'S ALLERGY INFO NEEDS ENTERED SCH; +ROPIVACAINE 5MG/ML 30 ML 150 MG, BUPIVACAINE 0.5% MPF INJ 30 ML, EpINEphrine HCL INJ 0.... INFIL SCH; -ROPIVACAINE 5MG/ML 30 ML 150 MG, BUPIVACAINE/EPINEPHR 0.5% MPF 30 ML, KETOROLAC TROMETH... INFIL SCH; +RXC5 PO; -SODIUM CHLORIDE 0.9% 1000ML 1,000 ML IV SCH; -TRANEXAMIC ACID INJ 1,000 MG in SODIUM CHLORIDE 0.9% 100ML 100 ML IV SCH
[2017-11-11] MEDS: TRANEXAMIC ACID INJ 1,000 MG in SYRINGE 0 ML IV SCH ×2 (06:30→08:04)
[2017-11-11] MEDS ORDERED: BUPIVACAINE 0.5 % 5 MG/1 ML PF 10ML VIAL ONE (06:31)
[2017-11-11] MEDS ORDERED: BUPIVACAINE 0.25% 30 ML VIAL ONE (06:31)
[2017-11-11] MEDS ORDERED: MIDAZOLAM HCL 1 MG/ML 2ML VIAL ONE (07:17)
[2017-11-11] MEDS ORDERED: BACITRACIN 50000 UNIT VIAL ONE (07:27)
[2017-11-11] MEDS ORDERED: ORTHO JOINT ANESTHETIC ONE (07:27)
[2017-11-11] MEDS ORDERED: KETOROLAC TROMETHAMINE 15 MG/ML VIAL IV. PRN (09:00)
[2017-11-11] MEDS ORDERED: ATROPINE SULFATE 0.1 MG/ML 5ML SYR IV PRN (09:00)
[2017-11-11] MEDS ORDERED: PHENYLEPHRINE 100MCG/ML 5ML SYR IV PRN (09:00)
[2017-11-11] MEDS ORDERED: EpHEDrine SULFATE INJ 50 MG/ML AMP IV PRN (09:00)
[2017-11-11] MEDS ORDERED: HYDROmorphone INJ 2 MG/ML SYR/VIAL IV PRN (09:00)
[2017-11-11] MEDS ORDERED: ONDANSETRON INJ 2 MG/ML 2 ML VIAL IV PRN ×2 (09:00→10:00)
--- NOTE | 2017-11-11 09:59 | [facility] Post Operative Brief Note ---
Immediate Operative Summary Operative Date Nov 11, 2017. Pre-Operative Diagnosis Osteoarthritis Right Knee Post-Operative Diagnosis same Procedure(s) Performed Right Total Knee Arthroplasty Surgeon Dr Lane Bandoleer Packer Surgeon(s) Adama Feliz PAC Estimated Blood Loss 5cc Findings as above Specimens femoral and tibial bone Drains Hemovac Complication(s) None Disposition Recovery Room / PACU
[2017-11-11] MEDS ORDERED: BISACODYL 10 MG SUPP PR PRN (10:00)
[2017-11-11] MEDS ORDERED: DICYCLOMINE HCL 20 MG TAB PO PRN (10:00)
[2017-11-11] MEDS ORDERED: ALPRAZOLAM 0.5 MG TAB PO PRN (10:00)
[2017-11-11] MEDS ORDERED: MAGNESIUM HYDROXIDE SUSP 30 ML UDC PO PRN (10:00)
[2017-11-11] MEDS ORDERED: MoRPHine SULFATE 2 MG/ML CARP IV PRN (10:00)
[2017-11-11] MEDS ORDERED: METOCLOPRAMIDE HCL INJ 5 MG/ML 2 ML VIAL IV PRN (10:00)
[2017-11-11] MEDS ORDERED: SOD PHOSPHATE/SOD BIPHOSPHATE ENEMA 132 ML BTL PR PRN (10:00)
[2017-11-11] MEDS ORDERED: PROPOFOL IV EMULSION 10 MG/ML 20 ML VIAL IV ONE (10:14)
--- NOTE | 2017-11-11 10:44 | Anesthesiology Progress Note ---
Anesthesia Post Op Note Date & Time Nov 11, 2017 at 10:43 Vital Signs Pain Intensity: 0 Vital Signs Past 12 Hours Date Time Temp Pulse Resp B/P (MAP) Pulse Ox O2 Delivery O2 Flow Rate FiO2 11/11/17 10:40 58 18 106/51 95 Nasal Cannula 2 11/11/17 10:30 57 22 116/44 97 Nasal Cannula 2 11/11/17 10:21 36.0 63 14 97/65 96 Nasal Cannula 11/11/17 06:55 36.7 68 18 135/63 94 Room Air Notes Mental Status: alert / awake / arousable, participated in evaluation Pt Amnestic to Procedure: Yes Nausea / Vomiting: adequately controlled Pain: adequately controlled Airway Patency, RR, SpO2: stable & adequate BP & HR: stable & adequate Hydration State: stable & adequate Anesthetic Complications: no major complications apparent
--- NOTE | 2017-11-11 10:45 | DIAGNOSTIC IMAGING REPORT ---
R KNEE 1 OR 2 VIEWS ROUTINE CLINICAL HISTORY: Degenerative arthritis. Postoperative study COMPARISON: October 2017 DISCUSSION: There are postsurgical changes of a total knee arthroplasty and patellar resurfacing. The femoral and tibial components appear well seated. Overlying skin caroline and surgical drains are evident. There is air within soft tissues consistent with recent surgery. IMPRESSION: Postsurgical changes of a total right knee arthroplasty. Electronically signed by: Frank Fowler M.D. 11/11/2017 10:44 AM Dictated Date/Time: 11/11/2017 10:43 AM
[2017-11-11] MEDS: KETOROLAC TROMETHAMINE 15 MG/ML VIAL IV. SCH ×3 (12:27→23:41)
[2017-11-11] MEDS: HYDROCODONE/ACETAMOPHEN 5/325MG TAB PO PRN ×3 (13:21→19:18)
--- NOTE | 2017-11-11 13:41 | Discharge Instructions ---
Discharge Instructions Date of Service Nov 11, 2017. Admission Reason for Admission: Right Knee Degenerative Joint Disease Discharge Discharge Diagnosis / Problem: Right Total Knee Discharge Goals Goal(s): Decrease discomfort, Improve function Activity Recommendations Activity Limitations: as noted below . Instructions / Follow-Up Instructions / Follow-Up Activity and Therapy Recommendations: * If you are using [facility] then Physical Therapy will be provided until they feel you are ready to start Outpatient Physical Therapy. If you are not using a Home Health agency then Outpatient Physical Therapy should start about 3-5 days from your day of surgery. Therapy will last about 6-10 weeks * It is important not to put a pillow under your knee when you are relaxing or sleeping. It is just as important to make sure you are getting your knee perfectly straight as it is to regain your knee bend. * You were shown a series of exercises in the hospital. Do these exercises three times each day including the exercises you were shown in physical therapy. * Get up and walk several times each day. For the first four weeks, try not to stand or walk for more than one hour at a time. If you do stand or walk for more than one hour, you will not hurt anything, but your leg will likely swell. * As you feel comfortable, you may change from the walker or crutches to a cane and then to independent walking. Medications: * Narcotic You will likely be sent home from the hospital with a prescription for the narcotic pain medication that worked best throughout your stay. * Aspirin Most patients will be required to take Aspirin 325mg twice a day for 6 weeks after surgery. This is obtained [id number] and a prescription is not necessary. * Other medications may be prescribed for specific circumstances. If you have any questions, please call the office at . * Resume previous home medications unless otherwise instructed TEDs/Elastic Stockings: The white elastic stockings help limit swelling and prevent blood clots from forming in your legs.~ The more you wear them, the more they work. Wear them for six weeks. Showering: You may shower 5 days from the day of surgery. Let the soapy shower water run over the caroline. Do not scrub or soak the incision. Things To Watch For: * Drainage from the incision site that occurs more than one week after your surgery. * Increased redness at the incision site. * Fever above 102 degrees Fahrenheit. * Unusual chest pain or shortness of breath. * Call [facility] at with any of the above problems Follow-Up Visit: Follow-up with Dr. Lane 2 weeks after your day of surgery. An appointment was probably scheduled when you signed-up for surgery in the office. If you have any questions call Office Instructions: More detailed instructions as well as Frequently Asked Questions were provided in a folder by our office when you signed-up for surgery. Please review these instructions when you get home. If you have any further questions or concerns, please feel free to call the office at [phone] Current Hospital Diet Patient's current hospital diet: Regular Diet Discharge Diet Recommended Diet: Regular Diet Procedures Procedures Performed: Right Total Knee Arthroplasty Pending Studies Studies pending at discharge: no Medical Emergencies . Who to Call and When: Medical Emergencies: If at any time you feel your situation is an emergency, please call [phone] immediately. . Non-Emergent Contact Non-Emergency issues call your: Surgeon Call Non-Emergent contact if: wound has increased drainage, wound has increased redness . "Provider Documentation" section prepared by Nolan Lane. . VTE Core Measure Inpt VTE Proph given/why not?: Other Anticoagulation (Aspirin 325 twice a day for 6 weeks)
--- NOTE | 2017-11-11 13:47 | OPERATIVE REPORT ---
DATE OF OPERATION: 11/11/2017 PREOPERATIVE DIAGNOSIS: Primary osteoarthritis of the right knee. POSTOPERATIVE DIAGNOSIS: Same. PROCEDURE: Right total knee arthroplasty. SURGEON: Dr. Nolan Lane. SENIOR APPLICATIONS ARCHITECT: Adama Feliz PA-C, whose assistance was necessary for retraction and closure. ANESTHESIA: Sedation with a right interscalene nerve block. COMPLICATIONS: None. CONDITION: Stable to PACU. INDICATIONS: [place] is a pleasant 67-year-old female who initially presented to my office with complaints of bilateral knee pain. I did a left total knee arthroplasty on her about 2 months ago. She elected to proceed with a right total knee arthroplasty. DESCRIPTION OF PROCEDURE: On 11/11/2017, she arrived at [facility] for the above procedure. She was seen in the preoperative holding area and the operative extremity was identified and signed. She was given preoperative antibiotics and a right adductor nerve block and a spinal anesthetic. She was taken back to the operating room, laid on the table in supine position and given basic sedation. The right knee was then prepped and draped in sterile fashion. Time-out was done and the patient's operative extremity was properly identified. A longitudinal incision was made directly over the patella. Dissection was taken down to the extensor mechanism. A medial parapatellar arthrotomy was used. The medial retinaculum was released. The fat pad was left intact and the knee was flexed. ACL, PCL and meniscus were removed. A drill was sent down the center of the femoral canal, followed by an intramedullary cristobal. Off that cristobal, a distal femoral cutting block was placed. 12 mm was resected off the distal femur at 5 degrees of valgus. A posterior referencing guide was then used to measure the size of the femur and it measured to be a size 65. Two drill holes were placed in 3 degrees of external rotation. A 4-in-1 cutting block was then impacted into place. Anterior, posterior and chamfer cuts were then made. The box cutting guide was then placed and the box was resected for the posterior stabilizing component. The proximal tibia was then exposed. A drill was sent down the center of the tibial canal followed by an intramedullary cristobal. Off that cristobal, a proximal tibial resection guide was placed and 2 mm was resected off the low medial side. The posterior aspect of the knee was then opened up and any remnants of soft tissue or bony osteophytes were removed. The tibia was exposed. The tibia measured to be a size 71. It was set in the appropriate rotation, drilled and punched. Trial components were placed. The knee was brought through a full range of motion and felt to be stable. The patella was then everted and 8 mm was resected off the posterior aspect of the patella. The patella measured to be a size 31. Three drill holes were placed. Trial components were then removed. Surrounding soft tissues were then injected with 100 mL of an orthopedic pain control cocktail. The femoral, tibial, and patellar components were then cemented in place with Palacos-G cement. A size 10 posterior stabilized bearing was then snapped into place and anterior bar was locked. The knee was brought through a full range of motion and felt to be stable. Two drains were placed. The extensor mechanism was closed with #1 Vicryl suture, both proximally and distally and #2 FiberWire suture in the superior medial aspect of the closure. The skin was closed with 2-0 Vicryl, 3-0 V-Loc suture and caroline. She was then placed in a soft compressive dressing and taken to the postanesthesia care unit in stable condition. She tolerated the procedure well. IMPLANTS USED: I used a Biomet Vanguard right total knee arthroplasty with a size 65 femur, 71 tibia, size 31 patella and a size 10 posterior stabilized bearing. I attest to the content of the Intraoperative Record and any orders documented therein. Any exception s are noted below.
[2017-11-11] MEDS: SODIUM CHLORIDE 0.9% 1000ML 1,000 ML IV SCH ×2 (15:55→23:42)
[2017-11-11] MEDS: CEFAZOLIN IV 2,000 MG in SYRINGE 0 ML IV SCH ×2 (15:55→23:41)
[2017-11-11] MEDS ORDERED: SENNA 8.6 MG TAB PO SCH (21:00)
[2017-11-11] MEDS ORDERED: ROSUVASTATIN CALCIUM 20 MG TAB PO SCH (21:00)
[2017-11-11] MEDS ORDERED: CHOLECALCIFEROL 1000 INTER.UNIT TAB PO SCH (21:00)
[2017-11-11] MEDS: DOCUSATE SODIUM 100 MG CAP PO SCH (22:03)
[2017-11-11] MEDS: ASPIRIN 325 MG ECTAB PO SCH (22:04)
[2017-11-12] MEDS: HYDROCODONE/ACETAMOPHEN 5/325MG TAB PO PRN ×3 (01:43→12:51)
[2017-11-12 03:50] VITALS: BP 100/49; PULSE 70; TEMP 37; O2SAT 94
[2017-11-12] MEDS: KETOROLAC TROMETHAMINE 15 MG/ML VIAL IV. SCH ×2 (05:50→12:45)
[2017-11-12 07:14] LABS: HEMATOCRIT 29.9 % (37-47); HEMOGLOBIN 9.6 g/dL (12.0-16.0); MEAN CELL VOLUME 82.1 fL (80-100); MEAN CORPUSCULAR HEMOGLOBIN 26.4 pg (25-34); MEAN CORPUSCULAR HGB CONC 32.1 g/dl (32-36); MEAN PLATELET VOLUME 10.4 fL (7.4-10.4); PLATELET COUNT 181 K/uL (130-400); RED CELL DISTRIBUTION WIDTH CV 15.7 % (11.5-14.5); RED CELL DISTRIBUTION WIDTH SD 47.2 fL (36.4-46.3)
[2017-11-12] MEDS ORDERED: HYDR-5688 PO (07:32)
[2017-11-12] MEDS ORDERED: ASPEC325 PO (07:33)
[2017-11-12 07:42] VITALS: BP 108/68; PULSE 65; TEMP 36.8; O2SAT 93
[2017-11-12 07:46] LABS: CALCIUM 8.7 mg/dl (8.5-10.1); CREATININE 0.87 mg/dl (0.60-1.20); POTASSIUM 4.1 mmol/L (3.5-5.1)
--- NOTE | 2017-11-12 07:46 | PROGRESS NOTE ---
DATE: 11/12/2017 CHIEF COMPLAINT: Status post right total knee arthroplasty postop day #1. PROGRESS: Ludy was seen and examined at bedside today. Overall, she is doing very well. She has some soreness in her knee, but not too bad. She has already been up and ambulating. She has no complaints. PHYSICAL EXAMINATION: VITAL SIGNS: All stable on room air and she is voiding on her own. RIGHT KNEE: The dressing is clean and dry and the drain is to suction. She is sitting at bedside with her knee flexed. She has active dorsiflexion and plantarflexion of her right ankle and sensation is intact. LABORATORY DATA: She has an H&H today of 9.6 and 29.1. IMAGING DATA: X-rays postoperatively of the right knee show the prosthesis to be in anatomic alignment without any evidence of fracture, dislocation or loosening. IMPRESSION: Status post right total knee arthroplasty postop day #1. PLAN: At this point, she is doing fairly well. She will be seen by physical therapy later this morning. Later today, the nursing staff can change the dressing, pull the drain and discharge her to home if she is doing okay.
--- NOTE | 2017-11-12 07:49 | DISCHARGE SUMMARY ---
DISCHARGE DIAGNOSIS: Primary osteoarthritis of the right knee. PROCEDURE: Right total knee arthroplasty on 11/11/[address]. DISCHARGE INSTRUCTIONS: 1. Aspirin 325 mg twice a day for 6 weeks. 2. [place] 5/325 one or two tabs every 4 hours as needed for pain. 3. Xanax 0.5 mg 3 times a day as needed. 4. Atenolol 25 mg at night. 5. Vitamin D 2000 units daily. 6. Bentyl 20 mg 4 times a day as needed. 7. Prilosec 40 mg daily. 8. MiraLax 17 grams oral daily. 9. Crestor 40 mg daily. 10. Zoloft 200 mg daily. 11. Turmeric 1000 mg daily. 12. Follow up with Dr. Lane in 2 weeks. 13. Call the office of Dr. Lane with any questions or concerns. HOSPITAL COURSE: [place] is a pleasant 67-year-old female who presented to my office with chronic right knee pain. X-rays and clinical examination were diagnostic for primary osteoarthritis of the right knee. After failing conservative treatment, she elected to undergo a right total knee arthroplasty. On 11/11/2017, she arrived at [facility] and underwent a right knee replacement without complication. She had a spinal anesthetic and a right adductor nerve block. Postoperatively, she was started on aspirin for DVT prophylaxis and discharged to general orthopedic floor. Her hospital course was uneventful. On postop day #1, her H&H was stable at 9.6 and 29.9. She was up and ambulating well with physical therapy and her pain was relatively well controlled. Because she was doing well, the nursing staff changed the dressing, pulled the drain and she was subsequently discharged to home with the above instructions.
[2017-11-12] MEDS: ASPIRIN 325 MG ECTAB PO SCH (08:33)
[2017-11-12] MEDS: DOCUSATE SODIUM 100 MG CAP PO SCH (08:33)
[2017-11-12] MEDS: SODIUM CHLORIDE 0.9% 1000ML 1,000 ML IV SCH (08:45)
[2017-11-12] MEDS ORDERED: SERTRALINE HCL 100 MG TAB PO SCH (09:00)
[2017-11-12] MEDS ORDERED: TURMERIC 1000 MG PO SCH (09:00)
[2017-11-12] MEDS ORDERED: MULTIVITAMIN TAB PO SCH (09:00)
[2017-11-12] MEDS ORDERED: PANTOprazole SOD 40 MG TAB PO SCH (09:00)
[2017-11-12] MEDS ORDERED: POLYETHYLENE (MIRALAX) 17 GM PACK PO SCH (09:00)
[2017-11-12] MEDS ORDERED: NEPHROCAPS PO SCH (09:00)
[2017-11-12 10:11] VITALS: BP 108/68; PULSE 65; TEMP 36.8; O2SAT 93
== END 2017-11-12 15:42 | disposition home health service (06) | DRG 470 ==
LOC: C.ACU 06:16 → C.3E 06:30 → ENRESERV 10:35
PROVIDERS: ADMIT Orthopaedic Surgery; ATTEND Orthopaedic Surgery
PROC: 0SRC0J9 Replacement of Right Knee Joint with Synthetic Substitute, Cemented, Open Approach (ICD-10-PCS; principal; 2017-11-11 09:00)
DX: M17.11 Unilateral primary osteoarthritis, right knee (principal); Z68.41 Body mass index [BMI] 40.0-44.9, adult; M21.161 Varus deformity, not elsewhere classified, right knee; I10 Essential (primary) hypertension; E78.5 Hyperlipidemia, unspecified; K21.9 Gastro-esophageal reflux disease without esophagitis; K57.90 Diverticulosis of intestine, part unspecified, without perforation or abscess without bleeding; F41.9 Anxiety disorder, unspecified; F32.9 Major depressive disorder, single episode, unspecified; E66.9 Obesity, unspecified; Z96.652 Presence of left artificial knee joint; Z79.899 Other long term (current) drug therapy

== ENCOUNTER → 2018-03-16 | Day surgery (SDC) | payer OTHER ==
[2018-03-01 11:38] VITALS: Ht 161.3 cm; Wt 100.0 kg
--- NOTE | 2018-03-10 09:21 | PAT Medication Instructions ---
Service Date March 10, 2018. Current Home Medication List Alprazolam (Xanax), 0.5 MG PO TID PRN for RN Atenolol (Tenormin), 25 MG PO HS Cholecalciferol (Vitamin D3), 1 TAB PO QPM Coenzyme Q10 (Ubidecarenone) (Coq10), 1 CAP PO QPM Dicyclomine Hcl (Dicyclomine Hcl), 1 TAB PO QID PRN for ABDOMINAL CRAMPING Hzccucov-Pqljkspfmfbu-Wrpvczry (Artificial Tears), 1 DROP OPB DIRECTED PRN for DRY EYES Magnesium Oxide (Mg Supplement (Magnesium), 1 TAB PO QPM Omeprazole (Prilosec), 40 MG PO QAM Polyethylene Glycol 3350 (Miralax), 17 GM PO QAM Rosuvastatin Calcium (Crestor), 40 MG PO HS Sertraline (Zoloft), 100 MG PO QAM Vitamin B Cmplx/Vitc/Folic Ac (Nephrocaps), 1 CAP PO QAM Medication Instructions For Your Scheduled Surgery - Hold the following medications starting today (03/10): Coenzyme Q10 (Ubidecarenone) (Coq10), 1 CAP PO QPM - Hold the following medications the morning of surgery: Dicyclomine Hcl (Dicyclomine Hcl), 1 TAB PO QID PRN for ABDOMINAL CRAMPING Polyethylene Glycol 3350 (Miralax), 17 GM PO QAM Vitamin B Cmplx/Vitc/Folic Ac (Nephrocaps), 1 CAP PO QAM - Take the following medications the morning of surgery with a sip of water: Alprazolam (Xanax), 0.5 MG PO TID PRN (if needed) Zrenztjd-Fqnvckfcxtgd-Owntbykl (Artificial Tears), 1 DROP OPB DIRECTED PRN for DRY EYES (if needed) Omeprazole (Prilosec), 40 MG PO QAM Sertraline (Zoloft), 100 MG PO QAM - Take the following medications as scheduled the night before surgery: Alprazolam (Xanax), 0.5 MG PO TID PRN (if needed) Atenolol (Tenormin), 25 MG PO HS Cholecalciferol (Vitamin D3), 1 TAB PO QPM Dicyclomine Hcl (Dicyclomine Hcl), 1 TAB PO QID PRN for ABDOMINAL CRAMPING (if needed) Egxvpuau-Xdqogenzvamf-Rhrpdaks (Artificial Tears), 1 DROP OPB DIRECTED PRN for DRY EYES (if needed) Magnesium Oxide (Mg Supplement (Magnesium), 1 TAB PO QPM Rosuvastatin Calcium (Crestor), 40 MG PO HS If you have any questions please call us at [phone] or [phone] or [phone]
[~2018-03-16] VITALS: Ht 161.3 cm; Wt 100.0 kg
[~2018-03-16] MED LIST changes: -ACETAMINOPHEN 500 MG TAB PO SCH; +ATROPINE SULFATE 0.1 MG/ML 5ML SYR IV PRN; -CEFAZOLIN 2000MG IV PUSH 10 ML IV SCH; +COEN100C7 PO; +DEXAMETHASONE SOD INJ 4 MG/ML VIAL IV PRN; +DEXAMETHASONE SOD INJ 4 MG/ML VIAL ONE; +DICY20TA10 PO; -DICY20TA35 PO; -DRY EYES OPB; +EpHEDrine SULFATE INJ 50 MG/ML AMP IV PRN; +EpINEphrine INJ 1MG/ML AMP 1 MG/ML AMP ONE; -FAMOTIDINE 20 MG TAB PO SCH; +FENTANYL CITRATE INJ 50 MCG/1 ML 2 ML VIAL IV PRN; +FENTANYL CITRATE INJ 50 MCG/1 ML 2 ML VIAL ONE; -GABAPENTIN 300 MG CAP PO SCH; +GLYCDRO6 OPB; +HYDR-5688 PO; +HYDROCODONE/ACETAMIN 5/325MG TAB PO PRN; +KETOROLAC TROMETHAMINE 30 MG/ML VIAL IV. PRN; +KETOROLAC TROMETHAMINE 30 MG/ML VIAL ONE; +LABETALOL HCL IV 5 MG/ML 20ML IV PRN; -LACTATED RINGER'S 1000ML 500 ML IV SCH; -LACTATED RINGER'S 1000ML IV SCH; +LIDOCAINE HCL 2% 2 ML VIAL (20MG/ML) ONE; +MAGN500T4 PO; -MAGNESIUM PO; +METOCLOPRAMIDE HCL INJ 5 MG/ML 2 ML VIAL IV PRN; +MIDAZOLAM HCL 1 MG/ML 2ML VIAL ONE; +MoRPHine SULFATE 10 MG/ML CARP/VIAL IV PRN; +OMEP40CA41 PO; +ONDANSETRON INJ 2 MG/ML 2 ML VIAL IV PRN; +ONDANSETRON INJ 2 MG/ML 2 ML VIAL ONE; -PATIENT'S ALLERGY INFO NEEDS ENTERED SCH; +PHENYLEPHRINE 100MCG/ML 5ML SYR IV PRN; -PRLSR20 PO; +PROPOFOL IV EMULSION 10 MG/ML 20 ML VIAL ONE; +ROPIVACAINE 0.5% 5 MG/ML 30 ML VIAL ONE; -ROPIVACAINE 5MG/ML 30 ML 150 MG, BUPIVACAINE 0.5% MPF INJ 30 ML, EpINEphrine HCL INJ 0.... INFIL SCH; -RXC5 PO; +SODIUM CHLORIDE 0.9% 1000ML 1,000 ML IV SCH; -TURM1CAP PO
[2018-03-16] MEDS: CEFAZOLIN 2000MG IV PUSH 15 ML IV SCH ×2 (07:06→07:45)
--- NOTE | 2018-03-16 07:32 | Discharge Instructions-SurgCtr ---
Discharge Instructions Date of Service March 16, 2018. Visit Reason for Visit: Right Knee Arthrofibrosis Discharge Discharge Diagnosis / Problem: SAME ABOVE Discharge Goals Goal(s): Decrease discomfort, Improve function Medications Stopped Medications Name(s): COQ10 was stopped a week ago. Restart Stopped Medication(s): FEBRUARY RESTART 03/16/2018 Activity Recommendations Activity Limitations: as noted below Lifting Limitations: gradually increase as tolerated Exercise/Sports Limitations: gradually increase as tolerated Anesthesia . Post Anesthesia Instructions: If you have had General Anesthesia or IV Sedation: * Do not drive today. * Resume driving when surgeon permits. * Do not make important decisions or sign legal documents today. * Call surgeon for: 1. Temperature elevations greater than 101 degrees F. 2. Uncontrollable pain. 3. Excessive bleeding. 4. Persistent nausea and vomiting. 5. Medication intolerance (nausea, vomiting or rash). * For nausea and vomiting use only clear liquids such as: tea, soda, bouillon until nausea subsides, then gradually increase diet as tolerated. * If you have any concerns or questions, call your surgeon's office. If physician is unavailable and it is an emergency, call 911 or go to the nearest emergency room. . Instructions / Follow-Up Instructions / Follow-Up MEDICATIONS: * Resume previous medications unless instructed otherwise by your surgeon. * Always take pain medication on a full stomach or with food to avoid upset stomach. * Do not drink alcohol or drive while taking narcotics. * Ibuprofen or Tylenol may be taken if narcotic not needed. SPECIAL CARE INSTRUCTIONS: __ None _X_ Keep extremity elevated and iced x 48 hours; apply ice 20-30 minutes 8-10 times/day. May remove at night. __ Crutches __ May discard when able __ Brace/Post-op shoe __ 24 hrs/day __ Remove at night __ Dressing __ Maintain until seen in office, may shower with plastic over site __ Remove dressings in 24-48 hours and then may shower __ Cover incisions with band-aids after showering __ Do not remove steri-strips Call physician if chills or temperature rises above 102 degrees or pain unrelieved by prescribed pain medications. Office [phone] Diet Recommendations Home Diet: no limitations Procedures Procedures Performed: Right Knee Manipulation Under Anesthesia Pending Studies Studies pending at discharge: no Medical Emergencies . Who to Call and When: Medical Emergencies: If at any time you feel your situation is an emergency, please call 911 immediately. . Non-Emergent Contact Non-Emergency issues call your: Primary Care Provider Call Non-Emergent contact if: you have a fever, temperature is above 101.5 . . "Provider Documentation" section prepared by Yan Feliz. .
[2018-03-16 08:10] VITALS: TEMP 36.4
--- NOTE | 2018-03-16 08:13 | Anesthesia Progress Nt - [facility] ---
Anesthesia Post Op Note Date & Time March 16, 2018 at 08:13 Vital Signs Pain Intensity: 3 Vital Signs Past 12 Hours Date Time Temp Pulse Resp B/P (MAP) Pulse Ox O2 Delivery O2 Flow Rate FiO2 03/16/18 08:02 59 24 03/16/18 08:02 59 24 95 03/16/18 08:01 123/63 03/16/18 08:01 36.7 58 16 123/63 98 Room Air 03/16/18 07:57 55 15 03/16/18 07:57 54 15 96 03/16/18 07:56 56 12 140/69 98 03/16/18 07:56 56 12 03/16/18 07:53 145/63 03/16/18 07:51 58 15 160/112 95 03/16/18 07:51 58 15 03/16/18 07:46 58 14 03/16/18 07:46 58 14 129/104 99 03/16/18 07:41 56 15 03/16/18 07:41 57 15 158/70 95 03/16/18 07:40 59 16 03/16/18 07:40 57 16 100 03/16/18 07:36 150/63 03/16/18 07:35 60 10 100 03/16/18 07:35 61 10 03/16/18 07:31 144/90 03/16/18 07:30 36.9 74 16 144/90 98 Diffusion Mask 6 03/16/18 07:07 65 5 98 03/16/18 07:07 66 03/16/18 07:06 161/76 03/16/18 07:05 65 03/16/18 07:05 64 6 98 03/16/18 07:01 158/91 03/16/18 07:00 65 03/16/18 07:00 64 18 100 03/16/18 06:59 64 03/16/18 06:59 64 11 100 03/16/18 06:58 191/81 03/16/18 06:54 64 0 03/16/18 06:49 0 03/16/18 06:34 36.1 62 20 157/109 (125) 97 Room Air 157/88 (111) Notes Mental Status: alert / awake / arousable, participated in evaluation Pt Amnestic to Procedure: Yes Nausea / Vomiting: adequately controlled Pain: adequately controlled Airway Patency, RR, SpO2: stable & adequate BP & HR: stable & adequate Hydration State: stable & adequate Anesthetic Complications: no major complications apparent
--- NOTE | 2018-03-16 08:35 | OPERATIVE REPORT ---
DATE OF OPERATION: 03/16/2018 PREOPERATIVE DIAGNOSIS: Postoperative arthrofibrosis of the right knee. POSTOPERATIVE DIAGNOSIS: Postoperative arthrofibrosis of the right knee. PROCEDURE: Manipulation under anesthesia of the right knee. SURGEON: Dr. Nolan Lane MINE MOTOR ENGINEER: Yna Feliz PA-C, whose assistance was necessary for helping with the manipulation. ANESTHESIA: General with a right adductor nerve block. COMPLICATIONS: None. CONDITION: stable to PACU. INDICATIONS: [place] is a pleasant a 67-year-old female who underwent a right total knee arthroplasty about 4 months ago. She got her knee flexion back to about 90 degrees, but felt she wanted to get more. She did have somewhat of a hard endpoint. I did a left knee replacement on her about 6 months ago and she has excellent range of motion with that. After failing conservative treatment, she elected to proceed with a manipulation under anesthesia of the right knee. DETAILS OF THE PROCEDURE: On 03/16/2018, she arrived at [facility] for the above procedure. She was seen in the preoperative holding area and the operative extremity was identified and signed. She was given an adductor nerve block. She was taken back to the operating room, laid on the table in supine position, and put under general anesthesia. Time-out was done and the patient's operative extremity was properly identified. On preoperative physical examination, she had about 90 degrees of flexion, but a hard endpoint. A gentle manipulation was done under anesthesia and I was able to get about 120 degrees of flexion. Pictures were taken of the flexion. She had relatively good extension. Her end range of motion was 3-120 degrees. She was then extubated, [facility], and taken to the postanesthesia care unit in stable condition. She tolerated the procedure well. I attest to the content of the Intraoperative Record and any orders documented therein. Any exceptions are noted below. KAYLA
[2018-03-16 08:43] VITALS: BP 145/56; PULSE 56; O2SAT 99
--- NOTE | 2018-03-16 09:14 | [facility] Post Operative Brief Note ---
Immediate Operative Summary Operative Date March 16, 2018. Pre-Operative Diagnosis Right Knee Arthrofibrosis Post-Operative Diagnosis same as pre op Procedure(s) Performed Right Knee Manipulation Under Anesthesia Surgeon Dr Lane Metal Fabricating Supervisor Surgeon(s) KARLOS Pedroza Estimated Blood Loss 0ml Findings Consistent with Post-Op Diagnosis Specimens none Anesthesia Type General Regional Complication(s) none Disposition Disposition: Recovery Room / PACU
== END | disposition home or self-care (01) ==
LOC: X.SURG 06:22
PROVIDERS: ATTEND Orthopaedic Surgery
DX: M24.662 Ankylosis, left knee (principal); Z98.1 Arthrodesis status; I10 Essential (primary) hypertension; E66.9 Obesity, unspecified; Z88.8 Allergy status to other drugs, medicaments and biological substances; Z96.653 Presence of artificial knee joint, bilateral; Z90.49 Acquired absence of other specified parts of digestive tract; F32.9 Major depressive disorder, single episode, unspecified; Z98.890 Other specified postprocedural states; F41.9 Anxiety disorder, unspecified; Z79.899 Other long term (current) drug therapy